=== PATIENT | female | born 1990 | race Caucasian/White ===

== ENCOUNTER 2016-11-09 20:03 | Emergency (ER) | payer SELFPAY ==
--- NOTE | 2016-11-09 22:27 | ED NURSING NOTES ---
Clinical Report - Nurses [facility] [address] [place] [address] 11/09/2016 20:05 Patient: ANIYAH GONZALEZ TRIAGE Triage time 2019. Acuity: LEVEL 3. Chief Complaint: ABDOMINAL PAIN and NAUSEA. Alert. No acute distress. (in pain). --20:35 Machelle Olivas 20:29 11/09/16. BP: 140/92. HR: 111. RR: 18. O2 saturation: 100%. Temp: 99 F. Pain level now 8/10. --20:35 Machelle Olivas. Weight: 106.5 kg. Height/Length: 64 inches. BMI: 40.3. --20:28 Machelle Olivas. Medications Zoloft Oral. --20:30 Machelle Olivas MetFORMIN HCl ER (MOD) Oral. --20:30 Machelle Olivas Famotidine Oral. --20:31 Machelle Olivas Hydrochlorothiazide Oral. --20:31 Machelle Olivas. Allergies No Known Drug Allergy. --20:31 Machelle Olivas. History Arrived by private vehicle. Historian: patient. Accompanied by family. This started just prior to arrival. Symptoms are constant and still present (30 minutes ago). ( Pt with low mid abd pain, sudden onset, pain so severe she is nauseated, pt sts she had same pain 1 month ago that lasted 2-3 hours then went away, she sts she was never seen for it). Treatment ATHLETIC SCOUT: None. SOCIAL HX: Never smoker. FALL RISK ASSESSMENT: Fall risk assessment completed. No fall risk identified. NUTRITIONAL RISK ASSESSMENT: The nutritional risk assessment revealed no deficiencies. FUNCTIONAL ASSESSMENT: Functional assessment: no impairments noted. LEARNING NEEDS ASSESSMENT: The learning needs assessment revealed no barriers. SKIN INTEGRITY ASSESSMENT: Skin integrity risk assessment completed. No skin integrity risk identified. --20:35 Machelle Olivas PAST MEDICAL HX: Last normal menstrual period- November 03. --21:12 Machelle Olivas. PROBLEMS: Depression. Gastroesophageal Reflux Disease. Hypertension. --20:32 Machelle Olivas Polycystic Ovary Disease. --20:56 Machelle Olivas The following entry was modified by Machelle Olivas, 20:56 Reason - Pt is not diabetic, metformin is for ovarian cysts <<STRICKEN ENTRY-- Diabetes Mellitus. --20:31 Machelle Olivas --END STRIKE>>. Interventions ID band on patient. To treatment room. --20:35 Machelle Olivas. PHYSICAL ASSESSMENT Ambulatory to room. GENERAL / NEURO / PSYCH: Alert. Oriented X 4. Appears in pain and in distress. HEENT: Mucous membranes are pink. RESPIRATORY: Respirations not labored. Breath sounds within normal limits. CVS: Normal sinus rhythm noted. Cardiac rhythm: sinus tachycardia. Capillary refill less than 2 seconds. GI / : The patient has had nausea. Obesity. Abdominal tenderness. Guarding present. SKIN: Skin is warm and dry. --20:35 Machelle Olivas. NURSING PROGRESS NOTES Patient gowned. Reassurance given. Call light placed in reach. Side rails up x 1. Bed placed in lowest position. Brakes of bed on. Patient ready for evaluation- chart flagged. --20:36 Machelle Olivas 20:53 11/09/2016 Site #1 started via IV in the right antecubital space with an 20g angiocath, with aseptic technique and good blood return; one attempt. Blood drawn: rainbow set. Labeled in the presence of the patient and sent to the lab. Saline lock flushed with 10 mL saline. --20:53 Machelle Olivas 20:53 11/09/2016 Zofran (Ondansetron HCl) IVP 4 mg given. via site #1. Allergies verified and confirmed 5 rights. IV patency established. IV site checked: no pain, redness, or swelling. IV flushed thoroughly pre- and post-medication administration. IVP given by RN. --20:53 Machelle Olivas 21:26 11/09/2016 Dilaudid (HYDROmorphone HCl PF) IVP 0.5 mg given. via site #1. Allergies verified, confirmed 5 rights and sedative warning given to the patient. IV patency established. IV site checked: no pain, redness, or swelling. IV flushed thoroughly pre- and post-medication administration. IVP given by RN. --21:26 Machelle Olivas 22:25 11/09/16. BP: 125/94. HR: 101. RR: 18. O2 saturation: 99%. Pain level now 5/10. --22:25 Machelle Olivas Reassessment after medication administered. She is calm and has had no adverse reaction. Overall patient status is the same- she states feels better. --22:25 Machelle Olivas Patient and family informed about reason for wait. Patient waiting for radiology results. --22:25 Machelle Olivas 23:11/09/2016 Zofran ODT (Ondansetron) PO 4 mg given. Allergies verified and confirmed 5 rights. --23: Machelle Olivas. DISPOSITION / DISCHARGE Departure time: 2300. Condition at departure: improved and stable. No learning barriers present. Discharge instructions provided and reviewed with the patient. Reviewed medication(s). Work note given. Patient verbalized understanding. Written instructions provided in Portuguese. The patient was discharged by the nurse practitioner. She was discharged home and accompanied by family. She left the Emergency Department ambulatory and via private vehicle. Family member driving. --23:02 Machelle Olivas 23:02 11/09/16. Pain level now 5/10. --23:02 Machelle Olivas 23:02 11/09/2016 Site #1 removed upon discharge. Catheter intact. Pressure dressing applied. --23:02 Machelle Olivas. Locked/Released at 11/09/2016 23:03 by Machelle Olivas,
--- NOTE | 2016-11-09 22:27 | ED ORDER SUMMARY ---
..... Patient: ANIYAH GONZALEZ OrderSheet [facility] VisitID: [id number] [address] [place] [address] 26y, F Registration Date/Time: 11/09/2016 ORDER SHEET Weight: 106.5 kg Allergies: No Known Drug Allergy GENERAL ORDERS: CBC w Diff Urgent (20:32 11/09/2016 ABlanchette PA-C) (Ack 20:40 ALawrence ER Tech1) (20:52 EBonham) CMP Urgent (20:32 11/09/2016 ABlanchette PA-C) (Ack 20:40 ALawrence ER Tech1) (20:52 EBonham) Urine Urgent (20:32 11/09/2016 ABlanchette PA-C) (Ack 20:40 ALawrence ER Tech1) (20:53 EBonham) UA-Culture if indicated Urgent (20:32 11/09/2016 ABlanchette PA-C) (Ack 20:40 ALawrence ER Tech1) (20:53 EBonham) US Pelvic Complete (suprapubic pain, ?palpable defect with valsalva, now with severe pain) Urgent (20:49 11/09/2016 ABlanchette PA-C) (Ack 20:51 ALawrence ER Tech1) (22:11 ALawrence ER Tech1) MEDICATION ORDERS: Zofran ODT PO 4 mg (NOW) (22:55 11/09/2016 ABlanchette PA-C) (23:01 EBonham) IV FLUIDS: Zofran IV 4 mg (NOW) (20:32 11/09/2016 ABlanchette PA-C) (20:53 EBonham) IV Saline Lock (20:32 11/09/2016 ABlanchette PA-C) (20:53 EBonham) Dilaudid IV 0.5 mg (HIGH ALERT MEDICATION, NOW) (21:20 11/09/2016 ABlanchette PA-C) (21:26 EBonham) ORDER SHEET NOTES: [Electronically signed by Machelle Olivas (23:03 11/09/2016)] [Electronically signed by Nandini Campos PA-C (23:35 11/09/2016)] [Electronically locked/signed by Machelle Olivas (23:03 11/09/2016)]
--- NOTE | 2016-11-09 22:27 | ED CLINICAL REPORT ---
Clinical Report - Physicians/Mid Levels [facility] [address] [place] [address] 11/09/2016 20:05 Patient: ANIYAH GONZALEZ Time Seen: 20:33; initial patient contact. Arrived- By private vehicle. Historian- patient. HISTORY OF PRESENT ILLNESS Chief Complaint: ABDOMINAL PAIN. It is described as "pain" and sharp and it is described as located in the suprapubic area. This started just prior to arrival This started just prior to arrival. Symptoms are constant and still present (30 minutes ago). ( Pt with low mid abd pain, sudden onset, pain so severe she is nauseated, pt sts she had same pain 1 month ago that lasted 2-3 hours then went away, she sts she was never seen for it). and is still present. At its maximum, severity described as 5 / 10. When seen in the E.D., severity described as 5 / 10. The patient has had nausea. No loss of appetite, vomiting or diarrhea. No recent travel. Similar symptoms previously: Once. Recent medical care: Not recently seen/assessed. REVIEW OF SYSTEMS No constipation, black stools, hematemesis, difficulty with urination or pain with urination. No urinary frequency. All systems otherwise negative, except as recorded above. PAST HISTORY See nurses notes. Problems: Polycystic Ovary Disease. Gastroesophageal Reflux Disease. Hypertension. Medications: Hydrochlorothiazide Oral. Famotidine Oral. MetFORMIN HCl ER (MOD) Oral. Zoloft Oral. Allergies: No Known Drug Allergy. SOCIAL HISTORY Never smoker. No alcohol use or drug use. FAMILY HISTORY Negative. ADDITIONAL NOTES The nursing notes have been reviewed with agreement regarding the chief complaint, HPI, ROS, PMH and patient medications and allergies. PHYSICAL EXAM Vital Signs: 11/09/2016 22:25 BP: 125/94. HR: 101. RR: 18. O2 saturation: 99%. 11/09/2016 20:29 BP: 140/92. HR: 111. RR: 18. O2 saturation: 100%. Temp: 99 F. Have been reviewed. Appearance: Alert. Oriented X3. No acute distress. Eyes: Pupils equal, round and reactive to light. Conjunctival findings present. Neck: Normal inspection. Neck supple. CVS: Normal heart rate and rhythm. Heart sounds normal. Respiratory: No respiratory distress. Breath sounds normal. Abdomen: Soft. Mild tenderness in the suprapubic area (suggestion of a palpable defect with bearing down, with a oval defect, smooth with valsalva...over area of pain). No guarding, rebound tenderness or March's, obturator or psoas sign present. Bowel sounds normal. No organomegaly. No mass. Femoral pulses equal. Obese. No rebound tenderness, distention, guarding or distention. Back: Normal inspection. Skin: Skin warm and dry. Normal skin color. No rash. Normal skin turgor. Extremities: No lower extremity edema. Neuro: Oriented X 3. LABS, X-RAYS, AND EKG Pelvic Sonogram: Normal study. The study was independently viewed by me, interpreted by the radiologist and discussed with the radiologist. Laboratory Tests: UA-Culture if indicated: (ANAMARIA: 11/09/2016 20:50) ( [facility] 11/09/2016 21:17) IP Test Result Flag Units (Reference) URINE COLOR YELLOW URINE APPEARANCE CLEAR URINE GLUCOSE NEGATIVE (NEGATIVE) URINE BILIRUBIN NEGATIVE (NEGATIVE) URINE KETONE NEGATIVE (NEGATIVE) URINE SPECIFIC GRAVITY 1.025 (1.010-1.030) URINE PH 6.0 (5.0-8.0) URINE PROTEIN NEGATIVE (NEGATIVE) URINE UROBILINOGEN 0.2 EU/dL (0.2-1.0) URINE NITRITE NEGATIVE (NEGATIVE) URINE BLOOD TRACE-INTACT (NEGATIVE) URINE LEUK ESTERASE NEGATIVE (NEGATIVE) Urine: (ANAMARIA: 11/09/2016 20:50) ( [facility] 11/09/2016 21:02) Final results Test Result Flag Units (Reference) URINE NEGATIVE CBC w Diff: (ANAMARIA: 11/09/2016 20:50) ( [facility] 11/09/2016 21:01) Final results Test Result Flag Units (Reference) WHITE BLOOD COUNT 12.6 H K/uL (4.5-11.5) RED BLOOD COUNT 5.34 H M/uL (4.00-5.20) HEMOGLOBIN 14.3 gm/dL (12.0-16.0) HEMATOCRIT 43.1 % (36.0-46.0) MEAN CELL VOLUME 81 fL (80-100) MEAN CORPUSCULAR HGB 27 pg (26-34) MEAN CORPUSCULAR HGB CONC 33 g/dL (31-37) RED CELL DISTRIBUTION WIDTH 12.8 % (11.6-14.8) PLATELET COUNT 470 H K/uL (150-400) NEUTROPHIL % 58.9 % (50-75) LYMPH % 30.4 % (25-40) MONO % 7.0 % (3-14) EOSINOPHIL % 3.3 % (0-4) BASOPHIL % 0.4 % (0-2) CMP: (ANAMARIA: 11/09/2016 20:50) ( MsgRcvd 11/09/2016 21:14) Final results Test Result Flag Units (Reference) GLUCOSE 120 H mg/dL (70-110) BUN 15 mg/dL (7-18) CREATININE 0.8 mg/dL (0.6-1.3) Estimated GFR >60 mL/min Estimated GFR- >60 mL/min Note: Persistent reduction over 3 months in eGFR<60 mL/min/1.73 m2 defines CKD. Patients with eGFR values>=60 mL/min/1.73 m2 may also have CKD if evidence ofpersistent proteinuria. Additional information may be foundat www.kidney.org. SODIUM 141 mmol/L (136-145) POTASSIUM 3.5 mmol/L (3.5-5.1) CHLORIDE 103 mmol/L (98-107) CARBON DIOXIDE 25 mmol/L (21-32) CALCIUM 9.4 mg/dL (8.5-10.1) TOTAL PROTEIN 8.8 H g/dL (6.4-8.2) ALBUMIN 3.7 g/dL (3.3-5.0) BILIRUBIN, TOTAL 0.2 mg/dL (0.0-1.0) ALKALINE PHOSPHATASE 141 H U/L (46-116) AST (SGOT) 28 U/L (15-37) ALT (SGPT) 51 U/L (12-78) . PROGRESS AND PROCEDURES Course of Care: Patient gowned. Reassurance given. Call light placed in reach. Side rails up x 1. Bed placed in lowest position. Brakes of bed on. Patient ready for evaluation- chart flagged. --20:36 Machelle Olivas 20:53 11/09/2016 Site #1 started via IV in the right antecubital space with an 20g angiocath, with aseptic technique and good blood return; one attempt. Blood drawn: rainbow set. Labeled in the presence of the patient and sent to the lab. Saline lock flushed with 10 mL saline. --20:53 Machelle Olivas 20:53 11/09/2016 Zofran (Ondansetron HCl) IVP 4 mg given. via site #1. Allergies verified and confirmed 5 rights. IV patency established. IV site checked: no pain, redness, or swelling. IV flushed thoroughly pre- and post-medication administration. IVP given by RN. --20:53 Machelle Olivas 21:11/09/2016 Dilaudid (HYDROmorphone HCl PF) IVP 0.5 mg given. via site #1. Allergies verified, confirmed 5 rights and sedative warning given to the patient. IV patency established. IV site checked: no pain, redness, or swelling. IV flushed thoroughly pre- and post-medication administration. IVP given by RN. --: Machelle Olivas 22:11/09/16. BP: 125/94. HR: 101. RR: 18. O2 saturation: 99%. Pain level now 5/10. --22:25 Machelle Olivas Reassessment after medication administered. She is calm and has had no adverse reaction. Overall patient status is the same- she states feels better. --: Machelle Olivas Patient and family informed about reason for wait. Patient waiting for radiology results. --: Machelle Olivas 23:11/09/2016 Zofran ODT (Ondansetron) PO 4 mg given. Allergies verified and confirmed 5 rights. --23: Machelle Olivas. no right lower quadrant pain, no ovarian cysts seen on usg. pain is definitely suprapubic and worsened with valsalva and palpation over area...low indication of suspicion for infectious process at this time. Patient is stable. Physical exam findings are improved. Symptoms better. CLINICAL IMPRESSION Acute suprapubic abdominal pain of unknown cause (i suspect you have a abdominal wall strain possibly early hernia). INSTRUCTIONS No strenuous activity. Rest. Do not work for two days until better. Drink plenty of fluids. No alcohol. Do not smoke. (apply warm heat as needed, will have her follow up with her pcp in the morning. RT er if pain worsens.). Warnings: GENERAL WARNINGS: Return or contact your physician immediately if your condition worsens or changes unexpectedly, if not improving as expected, or if other problems arise. Your Current Medications: CONTINUE TAKING THE FOLLOWING MEDICATIONS: Famotidine Oral. Hydrochlorothiazide Oral. MetFORMIN HCl ER (MOD) Oral. Zoloft Oral. Prescription Medications: Hydrocodone/APAP 5mg / 325mg: take 1 orally every 6 hours as needed for pain. Dispense ten (10). No refill. Follow-up: Follow up with your doctor Thursday if not better. Reason for referral: abdominal pain. Understanding of the discharge instructions verbalized by patient. (Electronically signed by Nandini Campos PA-C 11/09/2016 23:35)
--- NOTE | 2016-11-09 22:27 | ED ORDER SUMMARY ---
..... Patient: ANIYAH GONZALEZ OrderSheet [facility] VisitID: [id number] [address] [place] [address] 26y, F Registration Date/Time: 11/09/2016 ORDER SHEET Weight: 106.5 kg Allergies: No Known Drug Allergy GENERAL ORDERS: CBC w Diff Urgent (20:32 11/09/2016 ABlanchette PA-C) (Ack 20:40 ALawrence ER Tech1) (20:52 EBonham) CMP Urgent (20:32 11/09/2016 ABlanchette PA-C) (Ack 20:40 ALawrence ER Tech1) (20:52 EBonham) Urine Urgent (20:32 11/09/2016 ABlanchette PA-C) (Ack 20:40 ALawrence ER Tech1) (20:53 EBonham) UA-Culture if indicated Urgent (20:32 11/09/2016 ABlanchette PA-C) (Ack 20:40 ALawrence ER Tech1) (20:53 EBonham) US Pelvic Complete (suprapubic pain, ?palpable defect with valsalva, now with severe pain) Urgent (20:49 11/09/2016 ABlanchette PA-C) (Ack 20:51 ALawrence ER Tech1) (22:11 ALawrence ER Tech1) MEDICATION ORDERS: Zofran ODT PO 4 mg (NOW) (22:55 11/09/2016 ABlanchette PA-C) (23:01 EBonham) IV FLUIDS: Zofran IV 4 mg (NOW) (20:32 11/09/2016 ABlanchette PA-C) (20:53 EBonham) IV Saline Lock (20:32 11/09/2016 ABlanchette PA-C) (20:53 EBonham) Dilaudid IV 0.5 mg (HIGH ALERT MEDICATION, NOW) (21:20 11/09/2016 ABlanchette PA-C) (21:26 EBonham) ORDER SHEET NOTES: [Electronically signed by Machelle Olivas (23:03 11/09/2016)] [Electronically signed by Nandini Campos PA-C (23:35 11/09/2016)] [Electronically locked/signed by Machelle Olivas (23:03 11/09/2016)]
--- NOTE | 2016-11-09 23:36 | ED MAR SUMMARY ---
..... Medication Administration Record [facility] [address] [place] [address] Patient: ANIYAH GONZALEZ Visit ID: [id number] 26y, F Weight: 106.5 kg Height/Length: 64 in BMI: 40.3 ALLERGIES: No Known Drug Allergy Given 20:53 11/09/2016 Machelle Olivas, Medication Administered: ZOFRAN [IVP] (ONDANSETRON HCL), Dose: 4 mg IVP, Site: #1 right AC. Medication Ordered: Zofran IV 4 mg (NOW). Given 21:26 11/09/2016 Machelle Olivas, Medication Administered: DILAUDID [IVP] (HYDROMORPHONE HCL PF), Dose: 0.5 mg IVP, Site: #1 right AC. Medication Ordered: Dilaudid IV 0.5 mg (HIGH ALERT MEDICATION, NOW). Given 23:01 11/09/2016 Machelle Olivas, Medication Administered: ZOFRAN ODT [PO] (ONDANSETRON), Dose: 4 mg PO. Medication Ordered: Zofran ODT PO 4 mg (NOW).
--- NOTE | 2016-11-09 23:36 | ED MAR SUMMARY ---
..... Medication Administration Record [facility] [address] [place] [address] Patient: ANIYAH GONZALEZ Visit ID: [id number] 26y, F Weight: 106.5 kg Height/Length: 64 in BMI: 40.3 ALLERGIES: No Known Drug Allergy Given 20:53 11/09/2016 Machelle Olivas, Medication Administered: ZOFRAN [IVP] (ONDANSETRON HCL), Dose: 4 mg IVP, Site: #1 right AC. Medication Ordered: Zofran IV 4 mg (NOW). Given 21:26 11/09/2016 Machelle Olivas, Medication Administered: DILAUDID [IVP] (HYDROMORPHONE HCL PF), Dose: 0.5 mg IVP, Site: #1 right AC. Medication Ordered: Dilaudid IV 0.5 mg (HIGH ALERT MEDICATION, NOW). Given 23:01 11/09/2016 Machelle Olivas, Medication Administered: ZOFRAN ODT [PO] (ONDANSETRON), Dose: 4 mg PO. Medication Ordered: Zofran ODT PO 4 mg (NOW).
--- NOTE | 2016-11-09 23:36 | ED DISCHARGE INSTRUCTIONS ---
Patient: ANIYAH GONZALEZ General Instructions [facility] VisitID: [id number] [place] [address] 26y, F Registration Date/Time: 11/09/2016 Acute suprapubic abdominal pain of unknown cause (i suspect you have a abdominal wall strain possibly early hernia). INSTRUCTIONS No strenuous activity. Rest. Do not work for two days until better. Drink plenty of fluids. No alcohol. Do not smoke. (apply warm heat as needed, will have her follow up with her pcp in the morning. RT er if pain worsens.). Warnings: GENERAL WARNINGS: Return or contact your physician immediately if your condition worsens or changes unexpectedly, if not improving as expected, or if other problems arise. Your Current Medications: CONTINUE TAKING THE FOLLOWING MEDICATIONS: Famotidine Oral. Hydrochlorothiazide Oral. MetFORMIN HCl ER (MOD) Oral. Zoloft Oral. Prescription Medications: Hydrocodone/APAP 5mg / 325mg: take 1 orally every 6 hours as needed for pain. Dispense ten (10). No refill. Follow-up: Follow up with your doctor Thursday if not better. Reason for referral: abdominal pain. Understanding of the discharge instructions verbalized by patient. ADDITIONAL INFORMATION Abdominal Pain, Unknown Cause (Female) The exact cause of your abdominal (stomach) pain is not certain. This does not mean that this is something to worry about, or the right tests were not done. Everyone likes to know the exact cause of the problem, but sometimes with abdominal pain, there is no clear-cut cause, and this could be a good thing. The good news is that your symptoms can be treated, and you will feel better. Your condition does not seem serious now; however, sometimes the signs of a serious problem may take more time to appear. For this reason,it is important for you to watch for any new symptoms, problems,or worsening of your condition. Over the next few days, the abdominal pain may come and go, or be continuous. Other common symptoms can include nausea and vomiting. Sometimes it can be difficult to tell if you feel nauseous, you may just feel bad and not associate that feeling with nausea. Constipation, diarrhea, and a fever may go along with the pain. The pain may continue even if treated correctly over the following days. Depending on how things go, sometimes the cause can become clear and may require further or different treatment. Additional evaluations, medications, or tests may be needed. Home care Your health care provider may prescribe medications for pain, symptoms, or an infection. Follow the health care provider's instructions for taking these medications. General care Rest until your next exam. No strenuous activities. Try to find positions that ease discomfort. A small pillow placed on the abdomen may help relieve pain. Something warm on your abdomen (such as a heating pad) may help, but be careful not to burn yourself. Diet Do not force yourself to eat, especially if having cramps, vomiting, or diarrhea. Water is important so you do not get dehydrated. Soup may also be good. Sports drinks may also help, especially if they are not too acidic. Make sure you don't drink sugary drinks as this can make things worse. Take liquids in small amounts. Do not guzzle them. Caffeine sometimes makes the pain and cramping worse. Avoid dairy products if you have vomiting or diarrhea. Don't eat large amounts at a time. Wait a few minutes between bites. Eat a diet low in fiber (called a low-residue diet). Foods allowed include refined breads, white rice, fruit and vegetable juices without pulp, tender meats. These foods will pass more easily through the intestine. Avoid whole-grain foods, whole fruits and vegetables, meats, seeds and nuts, fried or fatty foods, dairy, alcohol and spicy foods until your symptoms go away. Follow-up care Follow up with your health care provider as instructed, or if your pain does not begin to improve in the next 24 hours. When to seek medical care Seek prompt medical care if any of the following occur: Pain gets worse or moves to the right lower abdomen New or worsening vomiting or diarrhea Swelling of the abdomen Unable to pass stool for more than three days Fever of 100.4F (38C) or higher, or as directed by your healthcare provider. Blood in vomit or bowel movements (dark red or black color) Jaundice (yellow color of eyes and skin) Weakness, dizziness Chest, arm, back, neck or jaw pain Unexpected vaginal bleeding or missed period Call 911 Call emergency services if any of the following occur: Trouble breathing Confusion Fainting or loss of consciousness Rapid heart rate Seizure You have been given the following additional information: Abdominal Pain, Unknown Cause, (Female) No strenuous activity. Rest. Do not work for two days until better. (Electronically signed by Nandini Campos PA-C 11/09/2016 23:35)
--- NOTE | 2016-11-09 23:36 | ED MED RECONCILIATION SUMMARY ---
Patient: ANIYAH GONZALEZ Medication Reconciliation Report [facility] VisitID: [id number] [address] [place] [address] 26y, F Registration Date/Time: 11/09/2016 Weight: 106.5 kg Height/Length: 64 in. BMI: 40.3 ALLERGIES: No Known Drug Allergy The patient's Home Medications are listed below: CONTINUE TAKING THE FOLLOWING MEDICATIONS: Famotidine Oral Hydrochlorothiazide Oral MetFORMIN HCl ER (MOD) Oral Zoloft Oral The source(s) of the original Home Medication information: Not obtained. The following Medications were given to the patient in the Emergency Department: Zofran [IVP] IVP 4 mg, administered: 11/09/2016 8:53:00 PM Dilaudid [IVP] IVP 0.5 mg, administered: 11/09/2016 9:26:00 PM Zofran ODT [PO] PO 4 mg, administered: 11/09/2016 11:01:00 PM The following Medications were prescribed to the patient: Hydrocodone/APAP 5mg / 325mg: take 1 orally every 6 hours as needed for pain. Dispense ten (10). No refill. -- Nandini Campos PA-C
--- NOTE | 2016-11-09 23:36 | ED MED RECONCILIATION SUMMARY ---
Patient: ANIYAH GONZALEZ Medication Reconciliation Report [facility] VisitID: [id number] [address] [place] [address] 26y, F Registration Date/Time: 11/09/2016 Weight: 106.5 kg Height/Length: 64 in. BMI: 40.3 ALLERGIES: No Known Drug Allergy The patient's Home Medications are listed below: CONTINUE TAKING THE FOLLOWING MEDICATIONS: Famotidine Oral Hydrochlorothiazide Oral MetFORMIN HCl ER (MOD) Oral Zoloft Oral The source(s) of the original Home Medication information: Not obtained. The following Medications were given to the patient in the Emergency Department: Zofran [IVP] IVP 4 mg, administered: 11/09/2016 8:53:00 PM Dilaudid [IVP] IVP 0.5 mg, administered: 11/09/2016 9:26:00 PM Zofran ODT [PO] PO 4 mg, administered: 11/09/2016 11:01:00 PM The following Medications were prescribed to the patient: Hydrocodone/APAP 5mg / 325mg: take 1 orally every 6 hours as needed for pain. Dispense ten (10). No refill. -- Nandini Campos PA-C
--- NOTE | 2016-11-09 23:42 | DIAGNOSTIC IMAGING REPORT ---
PROCEDURE: US COMPLETE PELVIC INDICATION: Pelvic pain for 3 months, worsening today, located to the right of midline and inferior to the umbilicus. History of heavy lifting. TECHNIQUE: Transabdominal damon scale and color Doppler sonographic images of the female pelvis were obtained. Damon scale and real time imaging of the lower abdomen right of midline, inferior to the umbilicus, and the patient's area of pain was performed at rest, during Valsalva, in supine, and upright position. COMPARISON: 08/26/2013 FINDINGS: Slightly suboptimal imaging of the pelvic organs secondary to body habitus. The uterus is anteverted and measures about 5.7 x 2.8 x 4.1 cm. The partially filled urinary bladder is grossly normal. The left ovary measures 3.4 x 2.2 x 2.7 cm and contains a dominant follicle. The right ovary measures 2.9 x 1.9 x 2.7 cm and appears grossly normal. No suspicious adnexal masses. The anterior abdominal wall to the right of midline in the area of pain and appears grossly intact. No change with Valsalva maneuver. No evidence of hernia. No subcutaneous cyst or solid mass seen. IMPRESSION: 1. No abnormality in the patient's area of pain such as hernia, cyst, or solid mass. 2. Normal limited transabdominal scans of the female pelvic organs.
== END 2016-11-09 23:00 | disposition home or self-care (01) ==
LOC: ED SRH 20:03
DX: R10.2 Pelvic and perineal pain (principal); K21.9 Gastro-esophageal reflux disease without esophagitis; I10 Essential (primary) hypertension; Z79.84 Long term (current) use of oral hypoglycemic drugs; Z79.899 Other long term (current) drug therapy
CPT/HCPCS: 90004; 90100; 93070; 95059